=== PATIENT | male | born 1965 | race Caucasian/White ===

== ENCOUNTER → 2022-05-28 | Day surgery (SDC) | payer OTHER ==
[~2022-05-28] VITALS: Ht 180.3 cm; Wt 94.3 kg
[~2022-05-28] MED LIST: CEFEPIME1 GM IV; DOXYCYCLINE HY100 M5 PO; DUONEB 3 MG/3 ML3 M1 NEB; Lovenox40 MG/0.4 SC; MUCINEX ER600 MG PO; NEBULIZER; PREDNISONE10 MG PO; PROAIR HFA8.5 GM INH; PROTONIX40 MG PO
[2022-05-28 09:03] VITALS: BP 116/55
[2022-05-28 09:44] VITALS: BP 105/49
[2022-05-28 09:56] VITALS: BP 111/63
== END | disposition home or self-care (01) ==
LOC: SDC 05-25 12:30
PROVIDERS: ATTEND Surgery
DX: Z12.11 Encounter for screening for malignant neoplasm of colon (principal); D12.8 Benign neoplasm of rectum; K21.9 Gastro-esophageal reflux disease without esophagitis; K29.50 Unspecified chronic gastritis without bleeding; F17.210 Nicotine dependence, cigarettes, uncomplicated; Z88.6 Allergy status to analgesic agent